=== PATIENT | female | born 1985 | race Asian ===

== ENCOUNTER 2021-03-01 05:06 | Day surgery (SDC) | payer OTHER ==
[2021-02-27 14:30] VITALS: BMI 23.5
[2021-03-01] MEDS ORDERED: ACETAMINOPHEN 325 MG TABLET (FP) PO PRN (12:53)
[2021-03-01] MEDS ORDERED: oxyCODONE HCL 5 MG TABLET PO PRN ×2 (12:53→14:26)
[2021-03-01] MEDS ORDERED: IBUPROFEN 400 MG TABLET (FP) PO PRN (12:53)
[2021-03-01] MEDS ORDERED: ONDANSETRON 4 MG/2 ML VIAL IVPUSH PRN ×2 (12:54→14:26)
[2021-03-01] MEDS ORDERED: MIDAZOLAM HCL 2 MG/2 ML SINGLE DOSE VIAL ONE ×2 (13:43)
[2021-03-01] MEDS ORDERED: PROPOFOL 20 ML ONE (13:43)
[2021-03-01] MEDS ORDERED: DOXYCYCLINE INJECTION 100 MG in DEXTROSE 5%-WATER 100 ML IVPB ONE (13:45)
[2021-03-01] MEDS ORDERED: DOXYCYCLINE HYCLATE 100 MG VIAL IVPB ONE (13:50)
[2021-03-01] MEDS ORDERED: PROMETHAZINE HCL 25 MG/1 ML VIAL IVPUSH PRN (14:26)
[2021-03-01] MEDS ORDERED: PROMETHAZINE HCL 25 MG/1 ML VIAL IVPB PRN (14:29)
[2021-03-01 14:45] VITALS: TEMP 98
[2021-03-01] MEDS ORDERED: KETOROLAC TROMETHAMINE 30 MG/1 ML VIAL ONE (15:33)
[2021-03-01] MEDS ORDERED: DEXAMETHASONE SOD PHOSPHATE 4 MG/1 ML VIAL ONE (15:33)
[2021-03-01 15:49] VITALS: BP 120/60; PULSE 50
== END 2021-03-01 15:30 | disposition home or self-care (01) ==
LOC: JASU-SURG 05:06
PROVIDERS: ATTEND Obstetrics & Gynecology
PROC: 10D17ZZ Extraction of Products of Conception, Retained, Via Natural or Artificial Opening (ICD-10-PCS; principal; 2021-03-01 12:30)
DX: O02.1 Missed abortion (principal)
CPT/HCPCS: 86850; 86900; 86901; 86922; 94760